=== PATIENT | female | born 1990 | race American Indian/Alaskan Native ===

== ENCOUNTER 2017-12-15 16:08 | Outpatient (CLI) | payer MEDICAID ==
--- NOTE | 2017-12-15 19:46 | Cat Scan Report ---
FINAL REPORT PROCEDURE: CT abdomen and pelvis without contrast. TECHNIQUE: Computerized axial tomography of the abdomen and pelvis was performed without intravenous contrast. This study is performed without intravascular contrast material and its sensitivity for abdominal and pelvic pathology, including neoplasms, inflammation, abscess, free fluid, thrombosis, arterial dissection and infarction, is reduced compared with a contrast enhanced study. HISTORY: Kidney calculus. COMPARISON: No prior studies are available for comparison. FINDINGS: The lung bases are clear. There are no pleural effusions. The heart size is normal. The liver, pancreas and spleen are grossly normal. The gallbladder is present. The adrenal glands are not enlarged. Both kidneys appear normal in size and configuration. There is a large nonobstructing calculus in the lower pole of the left kidney. This measures 5.6 millimeters x 5.2 millimeters in cross-section. There is no hydronephrosis. There are no definite ureteral calculi. There is a probable phlebolith posterior to the left side of the bladder. The abdominal aorta has a normal caliber. There is no retroperitoneal adenopathy. The unopacified gastrointestinal tract is unremarkable. A normal appendix is visible. The bladder, uterus and adnexal regions are unremarkable. The regional skeleton appears intact. IMPRESSION: Nonobstructing left renal calculus. No evidence of acute disease in the abdomen or pelvis.
== END 2017-12-15 16:09 | disposition home or self-care (01) ==
LOC: CT 16:08
PROVIDERS: ATTEND Urology
DX: N20.0 Calculus of kidney (principal)
CPT/HCPCS: 36415; 74176; 84702

== ENCOUNTER 2018-02-19 08:14 | Day surgery (SDC) | payer MEDICAID ==
[~2018-02-19 08:14] MED LIST: ANCEF/STERILE WATER 2 GM/20 ML 2 GM/20 ML SYRINGE IV NR; LACTATED RINGERS 1,000 ML IV SCH; VERSED IV NR; ZOFRAN IV PRN
[2018-02-19] MEDS ORDERED: ANCEF/STERILE WATER 2 GM/20 ML IV NR (09:00)
[2018-02-19] MEDS ORDERED: LACTATED RINGERS 0 ML ONE (09:04)
--- NOTE | 2018-02-19 09:11 | Anesthesia Day of Surgery ---
Anesthesia Day of Surgery - Day of Surgery Patient Examined: Yes Patient H&P Reviewed: Yes Patient is NPO: Yes
--- NOTE | 2018-02-19 09:11 | Anesthesia Consultation ---
Anesthesia Consult and Med Hx Date of service: 02/19/18 - Airway Anesthetic Teeth Evaluation: Good ROM Head & Neck: Adequate Mental/Hyoid Distance: Adequate Mallampati Class: Class III Intubation Access Assessment: Possibly Difficult - Pulmonary Exam CTA: Yes - Cardiac Exam Cardiac Exam: RRR - Pre-Operative Health Status ASA Pre-Surgery Classification: ASA3 Proposed Anesthetic Plan: General (Ga with LMA ok, Morbid obesity) - Pulmonary Hx Smoking: No Hx Asthma: No COPD: No Hx Pneumonia: No Hx Sleep Apnea: No (EMILY PRE SCREEN NEGATIVE) - Cardiovascular System Hx Hypertension: No - Central Nervous System Hx Seizures: No Hx Back Pain: Yes (FROM STONE) Hx Psychiatric Problems: No - Endocrine Hx Renal Disease: No Hx End Stage Renal Disease: No Hx Hypothyroidism: No Hx Hyperthyroidism: No - Hematic Hx Anemia: No Hx Sickle Cell Disease: No - Other Systems Hx Alcohol Use: No Hx Cancer: No
--- NOTE | 2018-02-19 09:35 | XRay Report ---
AP ABDOMEN: HISTORY: Left kidney stone. Compared to the CT abdomen pelvis dated 12/15/17. The renal shadows are normal size and position. A 5.4 mm calculus overlies the inferior pole of the left kidney. A second 5 mm density overlies the superior pole of the left kidney. This was not clearly demonstrated on the previous CT. It is unclear if this represents a renal stone or possibly something in the GI tract. No right nephrolithiasis is detected. The bowel gas pattern is unremarkable. IMPRESSION: Left nephrolithiasis as described.
[2018-02-19] MEDS ORDERED: LACTATED RINGERS 1,000 ML IV SCH (10:00)
--- NOTE | 2018-02-19 10:05 | Post Operative Note ---
Date of procedure: 02/19/18 Pre-op diagnosis: l flank pain l renal stone Post-op diagnosis: same Findings: as above Procedure: left eswl Anesthesia: GETA Surgeon: OLIVE PAUL Estimated blood loss: none Pathology: none Condition: stable Disposition: PACU
--- NOTE | 2018-02-19 10:06 | Discharge Summary ---
Short Stay Discharge Plan Activity: other (no straining ) Weight Bearing Status: Weight Bear as Tolerated Diet: regular Special Instructions: other (inc fluids ) Durable Medical Equipment Needed Upon Discharge: other Follow up with: DYAN KILGORE MD [Primary Care Provider] - 7 Days OLIVE PAUL MD [Staff Physician] - 14 Days
[2018-02-19] MEDS ORDERED: DIPRIVAN 10 MG/ML IV ONE (10:18)
[2018-02-19] MEDS ORDERED: XYLOCAINE MPF 2% ONE (10:19)
[2018-02-19] MEDS ORDERED: SUBLIMAZE ONE (10:54)
[2018-02-19] MEDS ORDERED: ZOFRAN ONE (11:00)
[2018-02-19] MEDS ORDERED: NEO SYNEPHRINE/NS Syringe(OR USE) IV ONE (11:06)
--- NOTE | 2018-02-19 11:15 | Operative Report ---
PREOPERATIVE DIAGNOSIS: Left renal stones, left flank pain. POSTOPERATIVE DIAGNOSES: Left renal stones, left flank pain. PROCEDURE: Left ESWL. SURGEON: Paul Jeronimo MD ANESTHESIA: General. FINDINGS: This is a woman with left renal stone. She now presents for lithotripsy. All risks and implications discussed. She has it looked like 2 stones on the KUB. The CT showed the lower pole, which was seen. We also see an upper pole. She now presents for lithotripsy. DESCRIPTION OF PROCEDURE: The patient was brought to lithotripsy OR, placed on the operating table. Stone was well localized, both the AP and oblique image. Shocks were begun at 1 kV increased to maximum of 4 kV. It looks like the stones were breaking up. We focused on both of them. We gave about 1500 to the larger and then 1000 to the other one. The patient tolerated the procedure well and brought to recovery in stable condition. JOB# [id number] JEFFERY/RAMONA
[2018-02-19] MEDS: DILAUDID IV PRN ×3 (11:30→11:52)
[2018-02-19] MEDS ORDERED: DILAUDID ONE ×2 (11:32→11:53)
[2018-02-19] MEDS ORDERED: PERCOCET 5/325 PO ONE (13:00)
[2018-02-19 13:33] VITALS: BP 100/64
--- NOTE | 2018-02-19 14:28 | Post Anesthesia Evaluation ---
- Post Anesthesia Evaluation Patient Participated: Yes Airway Patent: Yes Stable Respiratory Function: Yes Nausea/Vomiting: No Temp > 96.8F: Yes Pain Manageable: Yes Adequeate Hydration: Yes Anesthesia Complications: No
== END 2018-02-19 13:30 | disposition home or self-care (01) ==
LOC: OR 08:14
PROVIDERS: ATTEND Urology
DX: N20.0 Calculus of kidney (principal); E66.01 Morbid (severe) obesity due to excess calories; Z98.890 Other specified postprocedural states; Z68.29 Body mass index [BMI] 29.0-29.9, adult
CPT/HCPCS: 50590; 74018; 81025; J0690; J2250; J2405; J7120